=== PATIENT | female | born 1995 | race Caucasian/White ===

== ENCOUNTER 2017-01-29 15:37 | Observation (INO) | payer SELFPAY ==
[2017-01-29] MEDS ORDERED: SODIUM CHLORIDE 0.9% 1,000 ML IV ONE (16:04)
[2017-01-29] MEDS ORDERED: SODIUM CHLORIDE 0.9% 1,000ML IVBOLUS ONE (16:30)
[2017-01-29 16:44] LABS: BLOOD UREA NITROGEN 8 mg/dL (7-18)
[2017-01-29] MEDS ORDERED: FENTANYL PF 100 MCG/2ML ONE ×2 (18:11→22:30)
[2017-01-29] MEDS ORDERED: ICN FENTANYL 4MCG/ML IV IVPush PRN (18:30)
[2017-01-29] MEDS ORDERED: FENTANYL PF 100 MCG/2ML IVPush PRN (18:31)
[2017-01-29 20:40] VITALS: BP 104/52
[2017-01-29] MEDS ORDERED: METHYLERGONOVINE 0.2 MG/ML IM ONE (22:03)
[2017-01-29] MEDS ORDERED: MISOPROSTOL 200 MCG TABLET ONE (22:03)
[2017-01-29] MEDS ORDERED: OXYTOCIN 10 UNITS/ML, 1ML ONE (22:03)
[2017-01-29] MEDS ORDERED: SILVER NITRATE STICK TP ONE (22:03)
[2017-01-29] MEDS ORDERED: DEXAMETHASONE 4 MG/ML, 1ML ONE (22:12)
[2017-01-29] MEDS ORDERED: METOCLOPRAMIDE 5 MG/ML, 2ML ONE (22:12)
[2017-01-29] MEDS ORDERED: ONDANSETRON 2MG/ML, 2ML ONE (22:12)
[2017-01-29] MEDS ORDERED: CEFAZOLIN 1,000 MG ONE (22:12)
[2017-01-29] MEDS ORDERED: PROPOFOL 10 MG/ML, 20ML ONE (22:12)
[2017-01-29] MEDS ORDERED: MIDAZOLAM 1 MG/ML, 2ML IV PRN (23:00)
[2017-01-29] MEDS ORDERED: PROMETHAZINE 25 MG/ML, 1ML IV PRN (23:00)
[2017-01-29] MEDS ORDERED: HYDROmorphone 1 MG/ML, 1ML IV PRN (23:00)
[2017-01-29] MEDS ORDERED: ONDANSETRON 2MG/ML, 2ML IVPush PRN (23:00)
[2017-01-29] MEDS ORDERED: FENTANYL PF 100 MCG/2ML IV PRN (23:00)
[2017-01-29] MEDS ORDERED: OXYcodone 5 MG/5 ML ORAL.SOL UDC PO PRN (23:00)
[2017-01-29] MEDS ORDERED: MEPERIDINE/PF 25MG/0.5ML IVPush PRN (23:00)
[2017-01-29] MEDS ORDERED: AMOX1TAB61 PO (23:52)
[2017-01-29] MEDS ORDERED: OXYC-302 PO (23:53)
[2017-01-30] MEDS ORDERED: OXYcodone/APAP 5/325MG TABLET PO PRN (00:30)
[2017-01-30] MEDS ORDERED: IBUPROFEN 600 MG TABLET PO SCH (06:00)
== END 2017-01-30 | disposition home or self-care (01) ==
LOC: ED 19:35 → 4NOR 23:38
PROVIDERS: ADMIT Internal Medicine; ATTEND Internal Medicine
DX: O03.1 Delayed or excessive hemorrhage following incomplete spontaneous abortion (principal); J45.909 Unspecified asthma, uncomplicated; N85.2 Hypertrophy of uterus
CPT/HCPCS: 36415; 58120; 76830; 80048; 81003; 82040; 84702; 85025; 86901; 88305; 96374; 99285; G0378; J0690; J1100; J2405; J2704; J2765; J3010; J7030; J2210; J2590

== ENCOUNTER 2021-05-09 23:38 | Emergency (ER) | payer MEDICAID ==
[~2021-05-09] VITALS: Ht 157.5 cm; Wt 72.9 kg
[~2021-05-09 23:38] MED LIST: AMOX1TAB61 PO; OXYC1TAB12 PO
[2021-05-09 23:40] VITALS: BP 123/57
[2021-05-10] MEDS ORDERED: BACITRACIN ZINC OINT 500U/GM, 0.9 GM ONE (01:10)
--- NOTE | 2021-05-10 01:47 | NUR ---
Patient given discharge instructions and they have confirmed that they understand the instructions. Patient ambulatory with steady gait. NAD, all questions answered appropriately, denies additional needs at this time. No personal belongings left in room after discharge.
== END 2021-05-10 01:48 | disposition home or self-care (01) ==
LOC: ED 23:59
DX: S83.91XA Sprain of unspecified site of right knee, initial encounter (principal); S80.01XA Contusion of right knee, initial encounter; F17.210 Nicotine dependence, cigarettes, uncomplicated; W01.0XXA Fall on same level from slipping, tripping and stumbling without subsequent striking against object, initial encounter; Y93.89 Activity, other specified; Y92.89 Other specified places as the place of occurrence of the external cause; Y99.8 Other external cause status
CPT/HCPCS: 99283; 99406